=== PATIENT | female | born 1945 | race Caucasian/White ===

== ENCOUNTER 2018-06-16 18:42 | Emergency (ER) | payer OTHER ==
--- NOTE | 2018-06-16 18:47 | EDPHY ---
H & P Time Seen by Provider: 06/16/18 18:46 HPI/ROS: CHIEF COMPLAINT: Dizziness HISTORY OF PRESENT ILLNESS: 72-year-old female presents with dizziness. She ate a chocolate MJ edible and had a pint of beer. She walked to a restaurant and felt ok. Fairly soon afterwards, she began to feel dizzy and high. Dizziness persisted, and almost fainted, so called 911. No chest pain or shortness of breath. Feeling much better now. Feels less high and the dizziness has resolved. REVIEW OF SYSTEMS: complete 10 point ROS reviewed and is negative except for the noted elements in the HPI - Social History Alcohol Use: Occasionally Drug Use: Marijuana - Physical Exam Exam: General Appearance: Alert, pleasant Eyes: Pupils equal and round, no conjunctival pallor or injection ENT, Mouth: Mucous membranes moist Neck: Normal inspection Respiratory: Lungs are clear to auscultation Cardiovascular: Regular rate and rhythm Gastrointestinal: Abdomen is soft and nontender Neurological: A&O, nonfocal exam Skin: Warm and dry, no rash Extremities: Nontender, no pedal edema Psychiatric: Mood and affect normal Constitutional: Initial Vital Signs Temperature (C) 36.8 C 06/16/18 18:46 Heart Rate 70 06/16/18 18:46 Respiratory Rate 18 06/16/18 18:46 Blood Pressure 142/60 H 06/16/18 18:46 O2 Sat (%) 96 06/16/18 18:46 O2 Delivery Mode Room Air Allergies/Adverse Reactions: nickel Allergy (Verified 06/16/18 18:46) Home Medications: Medication Instructions Recorded Latanoprost 06/16/18 Medical Decision Making - Diagnostics EKG Interpretation: EKG interpreted by me reveals normal sinus rhythm, rate 65, no ST or T segment changes. Interpretation: Normal EKG ED Course/Re-evaluation: This patient presents after a near syncopal episode, likely related to alcohol and marijuana use. Stat EKG reveals no evidence of ischemia or dysrhythmia. Vital signs are normal. Will observe. On discharge, pt felt much better. Able to walk with a steady gait, no dizziness. Differential Diagnosis: Dizziness including but not limited to peripheral and central causes of vertigo , orthostatic causes including dehydration, and blood loss. - Data Points Laboratory Results: Laboratory Results 06/16/18 18:42 06/16/18 18:42 06/16/18 06/16/18 18:42 18:42 WBC 4.80 10^3/uL 10^3/uL (3.80-9.50) RBC 4.39 10^6/uL 10^6/uL (4.18-5.33) Hgb 13.7 g/dL g/dL (12.6-16.3) Hct 39.9 % % (38.0-47.0) MCV 90.9 fL fL (81.5-99.8) MCH 31.2 pg pg (27.9-34.1) MCHC 34.3 g/dL g/dL (32.4-36.7) RDW 13.2 % % (11.5-15.2) Plt Count 203 10^3/uL 10^3/uL (150-400) MPV 9.3 fL fL (8.7-11.7) Neut % (Auto) 37.0 % L % (39.3-74.2) Lymph % (Auto) 48.3 % H % (15.0-45.0) Becker % (Auto) 7.9 % % (4.5-13.0) Eos % (Auto) 5.6 % % (0.6-7.6) Baso % (Auto) 1.0 % % (0.3-1.7) Nucleat RBC Rel Count 0.0 % % (0.0-0.2) Absolute Neuts (auto) 1.77 10^3/uL 10^3/uL (1.70-6.50) Absolute Lymphs (auto) 2.32 10^3/uL 10^3/uL (1.00-3.00) Absolute Monos (auto) 0.38 10^3/uL 10^3/uL (0.30-0.80) Absolute Eos (auto) 0.27 10^3/uL 10^3/uL (0.03-0.40) Absolute Basos (auto) 0.05 10^3/uL 10^3/uL (0.02-0.10) Absolute Nucleated RBC 0.00 10^3/uL 10^3/uL (0-0.01) Immature Gran % 0.2 % % (0.0-1.1) Immature Gran # 0.01 10^3/uL 10^3/uL (0.00-0.10) Sodium 137 mEq/L mEq/L (135-145) Potassium 3.7 mEq/L mEq/L (3.3-5.0) Chloride 100 mEq/L mEq/L (97-110) Carbon Dioxide 26 mEq/l mEq/l (22-31) Anion Gap 11 mEq/L mEq/L (8-16) BUN 14 mg/dL mg/dL (7-23) Creatinine 0.9 mg/dL mg/dL (0.6-1.0) Estimated GFR > 60 Glucose 172 mg/dL H mg/dL (70-100) Calcium 9.0 mg/dL mg/dL (8.5-10.4) Departure - Departure Disposition: Home, Routine, Self-Care Clinical Impression: Dizziness Condition: Good Instructions: Dizziness (ED) Additional Instructions: Drink plenty of fluids. Your blood sugar is high today. Please have your blood sugar rechecked. You may have diabetes. Return for recurrent symptoms or any concerns. Referrals: Clint Quezada MD [Medical Doctor] - As per Instructions
--- NOTE | 2018-06-16 18:57 | CPEKG ---
Test Reason : OPEN Blood Pressure : / mmHG Vent. Rate : 065 BPM Atrial Rate : 066 BPM P-R Int : 156 ms QRS Dur : 100 ms QT Int : 410 ms P-R-T Axes : 065 058 058 degrees QTc Int : 427 ms Sinus rhythm Confirmed by Jaylen Gupta ([id number]) on 06/16/2018 6:57:18 PM Referred By: Confirmed By:Jaylen Gupta
[2018-06-16 19:14] LABS: PLATELET COUNT 203 10^3/uL (150-400)
[2018-06-16 20:33] VITALS: BP 160/81
== END 2018-06-16 20:36 | disposition home or self-care (01) ==
DX: R42 Dizziness and giddiness (principal)